=== PATIENT | female | born 1980 | race Caucasian/White ===

== ENCOUNTER 2017-04-29 14:28 | Outpatient (CLI) | payer MEDICARE, MEDICAID | END 2017-04-29 14:29 | disposition home or self-care (01) | LOC: BICRAD 14:28 | PROVIDERS: ATTEND Internal Medicine Gastroenterology | DX: K59.03 Drug induced constipation (principal) | CPT/HCPCS: 74018 ==

== ENCOUNTER 2018-01-31 12:53 | Outpatient (CLI) | payer MEDICARE, MEDICAID ==
--- NOTE | 2018-01-31 14:37 | CT ---
CT BRAIN WITHOUT CONTRAST: HISTORY: Subarachnoid hemorrhage, fall. FINDINGS: There are no previous exams for comparison. No evidence of infarct, hemorrhage, midline shift, or abnormal extraaxial fluid collections are seen. The ventricular size is normal and the basilar cisterns patent. The bony calvarium is intact. The visualized paranasal sinuses and mastoid air cells are well aerated. IMPRESSION: No CT evidence of acute intracranial process. This exam was interpreted in consultation with Dr. Reji Ford (neuroradiologist), [facility] POS: [facility]
== END 2018-01-31 12:54 | disposition home or self-care (01) ==
LOC: BICCT 12:53
PROVIDERS: ATTEND Specialist
DX: S06.6X0D Traumatic subarachnoid hemorrhage without loss of consciousness, subsequent encounter (principal)
CPT/HCPCS: 70450

== ENCOUNTER 2018-05-23 07:28 | Outpatient (CLI) | payer MEDICARE, MEDICAID ==
--- NOTE | 2018-05-23 09:13 | MRI ---
MRI BRAIN WITH AND WITHOUT CONTRAST: INDICATIONS: Complex partial seizures. Migraine headaches. COMPARISON: Reference made to 04/10/2016 brain MRI. FINDINGS: There is a normal size of the ventricular system. A few scattered small signal abnormalities of the cerebral white matter, involving the right cerebral hemisphere, are grossly stable. There is no new intracranial mass effect, midline shift, or acute territorial infarction. No pathologic intraaxial e nhancement. Skull base flow voids are maintained. There is mild mucosal prominence of the paranasal sinuses. IMPRESSION: 1. Stable examination without evidence of acute intracranial abnormality. 2. Previously described foci of signal alteration within the cerebral white matter are similar in ap pearance. POS: [facility]
[2018-05-23] MEDS ORDERED: Gadobenate Dimeglumine 529 MG/1 ML (20ML VIAL) ONE (13:43)
== END 2018-05-23 07:29 | disposition home or self-care (01) ==
LOC: MRI 07:28
PROVIDERS: ATTEND Psychiatry & Neurology Neurology
DX: G40.209 Localization-related (focal) (partial) symptomatic epilepsy and epileptic syndromes with complex partial seizures, not intractable, without status epilepticus (principal); G43.019 Migraine without aura, intractable, without status migrainosus
CPT/HCPCS: 70553; A9577

== ENCOUNTER 2018-06-05 10:25 | Outpatient (CLI) | payer MEDICARE, MEDICAID | END 2018-06-05 10:26 | disposition home or self-care (01) | LOC: PET 10:25 | PROVIDERS: ATTEND Psychiatry & Neurology Neurology | DX: G40.209 Localization-related (focal) (partial) symptomatic epilepsy and epileptic syndromes with complex partial seizures, not intractable, without status epilepticus (principal) | CPT/HCPCS: 78608; A9552 ==

== ENCOUNTER 2018-09-17 13:14 | Outpatient (CLI) | payer MEDICARE, MEDICAID ==
--- NOTE | 2018-09-17 15:46 | MRI ---
MRI OF THE CERVICAL SPINE WITHOUT CONTRAST: 09/17/18 HISTORY: G43.019, migraine without aura. Neck pain, headaches. Pain down both arms. COMPARISON: None. FINDINGS: Cerebellar tonsils terminate at the level of the foramen magnum. No marrow infiltrative process. Cord signal is normal. No paraspinal muscle atrophy. No significant cervical adenopathy. Levels are as follows: C2-3: Normal discs. No neural foraminal or spinal canal narrowing. Low grade uncinate process hypertr ophy. C3-4: Normal discs. No neural foraminal or spinal canal narrowing. C4-5: Normal discs. No neural foraminal or spinal canal narrowing. Low grade facet arthrosis. C5-6: Normal discs. No neural foraminal or spinal canal narrowing. Mild facet arthrosis bilaterally. C6-7: Normal discs. No neural foraminal or spinal canal narrowing. Moderate facet arthrosis bilateral ly. C7-T1: Normal discs. No neural foraminal or spinal canal narrowing. Moderate facet arthrosis. IMPRESSION: No significant neural foraminal or spinal canal narrowing throughout the entire cervical spine. POS: HOME
== END 2018-09-17 13:15 | disposition home or self-care (01) ==
LOC: BICMRI 13:14
PROVIDERS: ATTEND Specialist
DX: G43.019 Migraine without aura, intractable, without status migrainosus (principal); M54.2 Cervicalgia
CPT/HCPCS: 72141

== ENCOUNTER 2018-09-24 01:16 | Emergency (ER) | payer MEDICARE, MEDICAID ==
[2018-09-24] MEDS ORDERED: diphenhydrAMINE 50 MG/ML VIAL ONE (02:55)
[2018-09-24] MEDS ORDERED: Metoclopramide HCl 10 MG/2 ML VIAL ONE (02:55)
[2018-09-24] MEDS ORDERED: Magnesium 2 GM/50 ML BAG (IN WATER) ONE (04:01)
== END 2018-09-24 05:02 | disposition home or self-care (01) ==
LOC: ERS 01:16
DX: G43.909 Migraine, unspecified, not intractable, without status migrainosus (principal); K21.9 Gastro-esophageal reflux disease without esophagitis; F31.9 Bipolar disorder, unspecified; F90.9 Attention-deficit hyperactivity disorder, unspecified type; F17.210 Nicotine dependence, cigarettes, uncomplicated
CPT/HCPCS: 96365; 96367; 96375; J1200; J2765; J3475

== ENCOUNTER 2019-01-06 11:55 | Emergency (ER) | payer MEDICARE, MEDICAID ==
[2019-01-06 12:37] LABS: BHCG - Serum Negative (NEGATIVE); Pregs Control Background? CLEAR/WHITE (CLR/WHITE); Pregs Control Bar Appear? YES (CONTROL BAR)
[2019-01-06 12:44] LABS: ALT (SGPT) 15 U/L (8-55); AST (SGOT) 24 U/L (5-34); Albumin 3.8 g/dL (3.5-5.0); Alkaline Phosphatase 101 U/L (40-110); Anion Gap 11 mmol/L (10-20); BUN (Urea Nitrogen) 7 mg/dL (7.0-18.7); Bilirubin, Total 0.2 mg/dL (0.2-1.2); Calc. Creatinine Clearance 0 mL/min (70-130); Calcium 8.9 mg/dL (7.8-10.44); Carbon Dioxide 22 mmol/L (22-29); Chloride 108 mmol/L (98-107); Estimated GFR-MDRD Greater than 90; Globulin 3.1 g/dL (2.4-3.5); Glucose 117 mg/dL (70-105); Potassium 3.9 mmol/L (3.5-5.1); Protein, Total 6.9 g/dL (6.0-8.3); Sodium 137 mmol/L (136-145)
[2019-01-06] MEDS ORDERED: levETIRAcetam 500 MG/100 ML PREMIX BAG ONE (12:56)
== END 2019-01-06 13:50 | disposition home or self-care (01) ==
LOC: SCSER 11:55
DX: R56.9 Unspecified convulsions (principal); K21.9 Gastro-esophageal reflux disease without esophagitis; F41.9 Anxiety disorder, unspecified; F31.9 Bipolar disorder, unspecified; F90.9 Attention-deficit hyperactivity disorder, unspecified type; F17.210 Nicotine dependence, cigarettes, uncomplicated; Z79.899 Other long term (current) drug therapy
CPT/HCPCS: 80053; 84703; 96361; 96365; J1953

== ENCOUNTER 2019-01-14 13:31 | Outpatient (CLI) | payer MEDICARE, MEDICAID ==
[2019-01-14] MEDS ORDERED: Magnevist 469MG/ML 20 ML VIAL ONE ×2 (14:37→14:38)
--- NOTE | 2019-01-14 16:01 | MRI ---
Brain MRI with and without contrast: 01/14/2019 COMPARISON: 05/21/2018 HISTORY: Headaches, pressure behind both eyes, postconcussion syndrome, seizures TECHNIQUE: Multiplanar multisequence MR imaging of the brain obtained with and without contrast FINDINGS: The diffusion weighted imaging demonstrates no evidence for acute infarction and axial grad ient echo imaging demonstrates no evidence for intracranial hemorrhage. There are a few scattered subcentimeter foci of increased T2 and FLAIR signal within the deep and per iventricular white matter on the right, unchanged when compared to the prior examination. Arterial flow voids at the axial level of the skull base appear grossly unremarkable on the T2-weight ed imaging. The postcontrast imaging demonstrates no abnormal enhancement within the brain parenchyma. IMPRESSION: No acute findings.
--- NOTE | 2019-01-14 16:24 | MRI ---
MRI cervical spine with and without contrast: 01/14/2019 COMPARISON: 09/17/2018 HISTORY: Cervical spine pain, headaches TECHNIQUE: Multiplanar multisequence MR imaging of cervical spine with and without contrast FINDINGS: The sagittal STIR imaging demonstrates no focal area of osseous marrow edema. Cervical vert ebral body height and alignment is normal. No prevertebral soft tissue swelling. C2-3: No central canal or neural foraminal stenosis. C3-4: No central canal or neural foraminal stenosis. C4-5: No central canal or neural foraminal stenosis. C5-6: No central canal or neural foraminal stenosis. C6-7: No central canal or neural foraminal stenosis. C7-T1: No central canal or neural foraminal stenosis. No focal area of abnormal signal intensity identified within the cervical spine. Postcontrast imaging demonstrates no abnormal enhancement within the cervical spine. IMPRESSION: Unremarkable contrast enhanced cervical spine MRI.
== END 2019-01-14 13:32 | disposition home or self-care (01) ==
LOC: BICMRI 13:31
PROVIDERS: ATTEND Specialist
DX: M54.2 Cervicalgia (principal); F07.89 Other personality and behavioral disorders due to known physiological condition
CPT/HCPCS: 70553; 72156; A9579

== ENCOUNTER 2019-05-15 07:06 | Emergency (ER) | payer MEDICARE, OTHER ==
[2019-05-15 08:01] LABS: Anion Gap 13 mmol/L (10-20); BUN (Urea Nitrogen) 13 mg/dL (7.0-18.7); Calc. Creatinine Clearance 0 mL/min (70-130); Calcium 9.1 mg/dL (7.8-10.44); Carbon Dioxide 19 mmol/L (22-29); Chloride 111 mmol/L (98-107); Estimated GFR-MDRD Greater than 90; Glucose 94 mg/dL (70-105); Potassium 3.3 mmol/L (3.5-5.1); Sodium 140 mmol/L (136-145)
== END 2019-05-15 07:52 | disposition home or self-care (01) ==
LOC: ERS 07:06
DX: G40.909 Epilepsy, unspecified, not intractable, without status epilepticus (principal); K21.9 Gastro-esophageal reflux disease without esophagitis; F41.9 Anxiety disorder, unspecified; F31.9 Bipolar disorder, unspecified; F90.9 Attention-deficit hyperactivity disorder, unspecified type; Z87.891 Personal history of nicotine dependence; Z79.899 Other long term (current) drug therapy
CPT/HCPCS: 80048; 94760

== ENCOUNTER 2019-06-01 02:55 | Emergency (ER) | payer MEDICARE, MEDICAID ==
[2019-06-01] MEDS ORDERED: Ondansetron PF 4 MG/2 ML Vial ONE (03:29)
--- NOTE | 2019-06-01 08:22 | RAD ---
LUMBAR SPINE RADIOGRAPHS 3 VIEWS: DATE: 06/01/2019. PROVIDED CLINICAL HISTORY: Back pain. FINDINGS: Comparison 07/01/2007. Five [id number] lumbar-type vertebral bodies are present. Lumbar alignme nt appears normal. Vertebral body heights appear preserved. Intervertebral disk space heights appea r preserved. Pedicles appear intact. SI joints appear symmetric. IMPRESSION: No evidence for an acute osseous abnormality. POS: APRIL
== END 2019-06-01 04:28 | disposition home or self-care (01) ==
LOC: ERS 02:55
DX: S39.012A Strain of muscle, fascia and tendon of lower back, initial encounter (principal); S16.1XXA Strain of muscle, fascia and tendon at neck level, initial encounter; F90.9 Attention-deficit hyperactivity disorder, unspecified type; F31.9 Bipolar disorder, unspecified; K21.9 Gastro-esophageal reflux disease without esophagitis; Z79.899 Other long term (current) drug therapy; X58.XXXA Exposure to other specified factors, initial encounter
CPT/HCPCS: 72100; 96374; J2405

== ENCOUNTER 2019-06-19 10:03 | Outpatient (CLI) | payer MEDICARE, MEDICAID ==
--- NOTE | 2019-06-19 10:53 | CT ---
Exam: LUMBAR SPINE CT WITHOUT CONTRAST: HISTORY: Spondylosis, without myelopathy. Severe low back pain with radiation involving both lower ex tremities. Associated radiculopathy and weakness. COMPARISON: None. FINDINGS: Appropriate attenuation of the visualized solid organs and paraspinal muscles. Visualized aorta has a normal caliber. Visualized alimentary canal is grossly unremarkable. Presacral fat is preserved. Sacral ala are preserved. No sacral fracture. Symmetric sacroiliac joints. Five lumbar type vertebra. Lumbar spine vertebral body height is maintained. No fracture. There is no spondylolisthesis. No spondylolysis. Technique limits evaluation of the contents of the central spinal canal and neural foramina. L1-L2: No significant central canal stenosis or significant neural foraminal narrowing. L2-L3: No significant central canal stenosis or significant neural foraminal narrowing. L3-L4: No significant central canal stenosis or significant neural foraminal narrowing. L4-L5: Minimal broad-based disc bulge flattens the thecal sac. No significant central canal stenosis or significant neural foraminal narrowing. L5-S1: Broad-based disc bulge minimally contacts the thecal sac and encroaches upon the subarticular zones. No significant mass effect or obscuration of the thecal sac or either traversing S1 nerve root. Bilaterally, neural foramina are patent. IMPRESSION: 1. No fracture. 2. No significant central canal stenosis or significant neural foraminal narrowing throughout the lum bar spine. Transcribed Date/Time: 06/19/2019 11:03 AM
--- NOTE | 2019-06-19 10:58 | RAD ---
SACRUM AND COCCYX 3 VIEWS: Date: 06/19/2019 INDICATION: Spondylosis without myelopathy. Sacral pain. Pain to tailbone. FINDINGS: SI joints appear symmetric. Nonspecific degenerative sclerosis seen along both SI joints. Sacrum and coccyx otherwise appear unremarkable. No evidence of fracture. The lower lumbar vertebra, including L 4 and L5, show normal height and alignment and the disc spaces are preserved. Right hip prosthesis is noted. IMPRESSION: No acute findings. POS: [facility]
== END 2019-06-19 10:04 | disposition home or self-care (01) ==
LOC: BICCT 10:03
PROVIDERS: ATTEND Registered Nurse
DX: M47.816 Spondylosis without myelopathy or radiculopathy, lumbar region (principal)
CPT/HCPCS: 72131; 72220

== ENCOUNTER 2019-08-31 02:39 | Emergency (ER) | payer MEDICARE, OTHER ==
[2019-08-31] MEDS ORDERED: Metoclopramide HCl 10 MG TAB ONE (03:20)
[2019-08-31] MEDS ORDERED: HYDROcodone/Acetaminophen 10/325 mg Tablet ONE (03:20)
== END 2019-08-31 03:48 | disposition home or self-care (01) ==
LOC: ERS 02:39
DX: G89.29 Other chronic pain (principal); M25.552 Pain in left hip; F41.9 Anxiety disorder, unspecified; F31.9 Bipolar disorder, unspecified; F90.9 Attention-deficit hyperactivity disorder, unspecified type; Z79.899 Other long term (current) drug therapy
CPT/HCPCS: 99283

== ENCOUNTER 2019-09-01 11:54 | Emergency (ER) | payer MEDICARE, OTHER | END 2019-09-01 13:38 | disposition home or self-care (01) | LOC: ERS 11:54 | DX: G89.29 Other chronic pain (principal); M54.5 Low back pain; F41.9 Anxiety disorder, unspecified; F31.9 Bipolar disorder, unspecified; F90.9 Attention-deficit hyperactivity disorder, unspecified type; K21.9 Gastro-esophageal reflux disease without esophagitis; Z87.891 Personal history of nicotine dependence; Z79.899 Other long term (current) drug therapy | CPT/HCPCS: 99283 ==

== ENCOUNTER 2019-12-18 12:14 | Outpatient (CLI) | payer MEDICARE, OTHER, MEDICAID ==
--- NOTE | 2019-12-18 13:05 | RAD ---
SACROILIAC JOINTS: Date: 12/18/2019 HISTORY: SI joint pain. FINDINGS: There are mild arthritic-type changes of the SI joints. No ankylosis or erosive-type change. Right hi p prosthesis is present. IMPRESSION: No acute findings. POS: OFF
== END 2019-12-18 12:15 | disposition home or self-care (01) ==
LOC: BICRAD 12:14
DX: M25.50 Pain in unspecified joint (principal)
CPT/HCPCS: 36415; 72202; 80053; 85025; 85652; 86140

== ENCOUNTER 2020-02-29 12:54 | Outpatient (CLI) | payer MEDICARE, OTHER ==
--- NOTE | 2020-02-29 13:21 | RAD ---
Lumbar spine 2 views: 02/29/2020 COMPARISON: 06/01/2019 HISTORY: Low back pain FINDINGS: Lateral imaging of the lumbar spine demonstrates normal vertebral body height and alignment . Lumbar pedicles appear intact on frontal imaging. IMPRESSION: No acute findings.
--- NOTE | 2020-02-29 13:24 | RAD ---
Radiograph thoracic spine 3 views: 02/29/2020 HISTORY: 39-year-old female with mid back pain. History of falls. COMPARISON: Thoracic spine MRI of 12/21/2013 Plain radiograph of 09/12/2016. FINDINGS: Mild chronic superior endplate broad depression of T8 vertebral body, with minimal anterior wedging, and approximately 10-20 % overall loss of height, unchanged since the prior MRI. Moderate discogenic degenerative changes at T7-8. No loss of height involving any other levels. Mild discogenic degenerative changes at other levels in the mid and lower thoracic spine. No interval change overall since 09/12/2016. IMPRESSION: 1.) Low-grade thoracic spondylosis, consisting of moderate degenerative disc disease at T7-8, and mil d degenerative disc changes at a few other levels inferior to that. 2) old mild compression deformity of T8. 3) no acute compression fracture. No interval change since 09/12/2016.
== END 2020-02-29 12:55 | disposition home or self-care (01) ==
LOC: BICRAD 12:54
PROVIDERS: ATTEND Orthopaedic Surgery
DX: M54.5 Low back pain (principal); M54.6 Pain in thoracic spine; M51.34 Other intervertebral disc degeneration, thoracic region
CPT/HCPCS: 72072; 72100

== ENCOUNTER 2020-03-08 12:25 | Outpatient (CLI) | payer MEDICARE, MEDICAID ==
--- NOTE | 2020-03-08 13:56 | MRI ---
MRI THORACIC SPINE WITHOUT CONTRAST: 03/08/20 INDICATIONS: Thoracic spine. COMPARISON: Comparison made to MRI thoracic spine dated 12/21/13. FINDINGS: Mild anterior wedging of the T7 and T8 vertebrae again noted. There is a superior end plate deformity consistent with Schmorl node at T8. Findings at both of these levels are stable from 2013. There is no evidence of edema seen within any of the thoracic vertebrae on STIR sequence. Mild degenerative sp urring from the thoracic vertebrae. Mild superior end plate compression at T4 is also a stable finding without significant anterior wedgi ng. A small Schmorl node involving the superior end plate of T11 is stable. Review of the disc level shows a mild disc bulge at T7-T8 flattening the thecal sac, similar appearan ce to the prior study. Disc bulge at T9-T10 is seen with small protrusion paracentrally to the right at this level best appr eciated on the sagittal imaging. This may abut the anterior cord. No other significant disc bulge or protrusion. The thoracic cord signal appears normally preserved. IMPRESSION: 1. Mild wedging of T7 and T8 vertebrae with other vertebral end plate deformities as described a nadia which appears stable from 2013. 2. Mild disc bulge with possible small protrusion on the right at T9-T10 as described above. Min imal disc bulge at T7-T8 as described. POS: [facility]
== END 2020-03-08 12:26 | disposition home or self-care (01) ==
LOC: BICMRI 12:25
PROVIDERS: ATTEND Orthopaedic Surgery
DX: M54.6 Pain in thoracic spine (principal); M51.24 Other intervertebral disc displacement, thoracic region
CPT/HCPCS: 72146

== ENCOUNTER 2020-06-22 09:50 | Outpatient (CLI) | payer MEDICARE, MEDICAID ==
[2020-06-22] MEDS ORDERED: Magnevist 469MG/ML 20 ML VIAL ONE (12:36)
== END 2020-06-22 09:51 | disposition home or self-care (01) ==
LOC: BICMRI 09:50
PROVIDERS: ATTEND Psychiatry & Neurology Neurology
DX: H53.9 Unspecified visual disturbance (principal); R90.89 Other abnormal findings on diagnostic imaging of central nervous system
CPT/HCPCS: 70553; A9579

== ENCOUNTER 2020-06-24 05:48 | Emergency (ER) | payer MEDICARE, MEDICAID ==
[2020-06-24] MEDS ORDERED: Ondansetron ODT 4 MG TAB ONE (07:07)
[2020-06-24] MEDS ORDERED: HYDROcodone/Acetaminophen 7.5/325 mg Tablet ONE (07:07)
== END 2020-06-24 08:15 | disposition home or self-care (01) ==
LOC: ERS 05:48
DX: S50.11XA Contusion of right forearm, initial encounter (principal); Z87.891 Personal history of nicotine dependence; X58.XXXA Exposure to other specified factors, initial encounter
CPT/HCPCS: Q0162

== ENCOUNTER 2020-07-04 00:15 | Emergency (ER) | payer MEDICARE, MEDICAID | END 2020-07-04 03:02 | disposition left against medical advice (07) | LOC: ERS 00:15 | DX: Z53.21 Procedure and treatment not carried out due to patient leaving prior to being seen by health care provider (principal) ==

== ENCOUNTER 2021-10-26 13:14 | Emergency (ER) | payer OTHER ==
[2021-10-26] MEDS ORDERED: Morphine 4 MG/ML VIAL ONE (14:26)
== END 2021-10-26 14:57 | disposition home or self-care (01) ==
LOC: ERS 13:14
DX: M79.7 Fibromyalgia (principal); M54.32 Sciatica, left side
CPT/HCPCS: 96372; 99283; J2270

== ENCOUNTER 2021-11-15 11:05 | Outpatient (CLI) | payer OTHER | END 2021-11-15 11:06 | disposition home or self-care (01) | LOC: MRI 11:05 → BICMRI 11:06 | PROVIDERS: ATTEND Podiatrist | DX: S93.402A Sprain of unspecified ligament of left ankle, initial encounter (principal); M79.672 Pain in left foot; M65.872 Other synovitis and tenosynovitis, left ankle and foot ==

== ENCOUNTER 2022-12-21 10:52 | Emergency (ER) | payer OTHER ==
[2022-12-21 11:46] LABS: #Basophils 0.1 thou/uL (0.0-0.2); #Eosinphils 0.1 thou/uL (0.0-0.7); #Monocytes 0.7 thou/uL (0.11-0.59); #Neutrophils 6.3 thou/uL (1.40-6.50); %Basophils 0.7 % (0.0-1.0); %Monocytes 6.9 % (0.0-10.0); %Neutrophils 60.9 % (42.0-75.0); Hematocrit 42.6 % (36.0-47.0); Mean Corpuscular HGB CONC 32.9 g/dL (32.0-36.0); Mean Corpuscular Hemoglobin 30.8 pg (27.0-31.0); Mean Corpuscular Volume 93.8 fl (78.0-98.0); Mean Platelet Volume 9.4 fL (7.4-10.4); Platelet Count 351 10x3/uL (130-400); RBC Distribution Width 13.4 % (11.5-14.5); Red Blood Cell (RBC) Count 4.54 mill/uL (4.20-5.40); White Blood Cell (WBC) Count 10.4 10x3/uL (4.8-10.8)
[2022-12-21 12:01] LABS: BHCG - Serum Negative (NEGATIVE); Pregs Control Background? CLEAR/WHITE (CLR/WHITE); Pregs Control Bar Appear? YES (CONTROL BAR)
[2022-12-21] MEDS ORDERED: Dexamethasone 4 mg/ml Vial ONE (12:05)
[2022-12-21 12:09] LABS: ALT (SGPT) 32 U/L (8-55); AST (SGOT) 26 U/L (5-34); Albumin 4.4 g/dL (3.5-5.0); Alkaline Phosphatase 82 U/L (40-110); Anion Gap 12 mmol/L (10-20); BUN (Urea Nitrogen) 14 mg/dL (7.0-18.7); Bilirubin, Total 0.2 mg/dL (0.2-1.2); Calc. Creatinine Clearance 0 mL/min (70-130); Carbon Dioxide 20 mmol/L (22-29); Chloride 111 mmol/L (98-107); Estimated GFR 110; Globulin 2.8 g/dL (2.4-3.5); Glucose 99 mg/dL (70-105); Lipase 15 U/L (8-78); Protein, Total 7.2 g/dL (6.0-8.3); Sodium 139 mmol/L (136-145)
[2022-12-21] MEDS ORDERED: Morphine 4 MG/ML VIAL ONE (12:29)
== END 2022-12-21 12:49 | disposition home or self-care (01) ==
LOC: ERS 10:52
DX: R19.7 Diarrhea, unspecified (principal); M06.9 Rheumatoid arthritis, unspecified; E11.9 Type 2 diabetes mellitus without complications; M32.9 Systemic lupus erythematosus, unspecified; Z86.73 Personal history of transient ischemic attack (TIA), and cerebral infarction without residual deficits
CPT/HCPCS: 36415; 80053; 83690; 83735; 84703; 85025; 93005; 96361; 96374; 96375; J1100; J2270

== ENCOUNTER 2022-12-26 13:59 | Emergency (ER) | payer OTHER ==
[~2022-12-26 13:59] MED LIST: Iopamidol-370 76% 500 ML MDV (1 ML CHARGE) ONE
[2022-12-26] MEDS ORDERED: Dicyclomine 20 MG/2 ML VIAL ONE (14:55)
[2022-12-26 15:17] LABS: #Eosinphils 0.2 thou/uL (0.0-0.7); #Monocytes 0.6 thou/uL (0.11-0.59); #Neutrophils 5.5 thou/uL (1.40-6.50); %Basophils 0.4 % (0.0-1.0); %Eosinophils 1.5 % (0.0-10.0); %Lymphocytes 34.1 % (21.0-51.0); %Monocytes 6.4 % (0.0-10.0); %Neutrophils 57.2 % (42.0-75.0); Hematocrit 43.2 % (36.0-47.0); Hemoglobin 14.6 g/dL (12.0-16.0); Mean Corpuscular HGB CONC 33.8 g/dL (32.0-36.0); Mean Corpuscular Hemoglobin 31.1 pg (27.0-31.0); Mean Corpuscular Volume 91.9 fl (78.0-98.0); Mean Platelet Volume 9.3 fL (7.4-10.4); Platelet Count 377 10x3/uL (130-400); RBC Distribution Width 13.1 % (11.5-14.5); White Blood Cell (WBC) Count 9.7 10x3/uL (4.8-10.8)
[2022-12-26 15:41] LABS: BHCG - Serum Negative (NEGATIVE); Pregs Control Background? CLEAR/WHITE (CLR/WHITE); Pregs Control Bar Appear? YES (CONTROL BAR)
[2022-12-26 15:45] LABS: ALT (SGPT) 28 U/L (8-55); AST (SGOT) 20 U/L (5-34); Albumin 4.5 g/dL (3.5-5.0); Alkaline Phosphatase 95 U/L (40-110); Anion Gap 15 mmol/L (10-20); BUN (Urea Nitrogen) 14 mg/dL (7.0-18.7); Bilirubin, Total 0.2 mg/dL (0.2-1.2); Calc. Creatinine Clearance 0 mL/min (70-130); Calcium 9.1 mg/dL (7.8-10.44); Carbon Dioxide 19 mmol/L (22-29); Chloride 109 mmol/L (98-107); Estimated GFR 110; Globulin 2.9 g/dL (2.4-3.5); Glucose 92 mg/dL (70-105); Lipase 17 U/L (8-78); Magnesium 1.9 mg/dL (1.6-2.6); Potassium 3.6 mmol/L (3.5-5.1); Protein, Total 7.4 g/dL (6.0-8.3); Sodium 139 mmol/L (136-145)
[2022-12-26 16:04] LABS: SARS-CoV-2 NAA Rapid Test Not Detected (NotDetected)
[2022-12-26 16:20] LABS: Bilirubin Negative (Negative); Blood, Urine Negative (Negative); CAUTI Indications for Culture Fever or rigors; Clarity Clear (Clear); Glucose, Urine (Dipstick) Normal (Negative); Ketone, Urine Negative (Negative); Leukocyte Negative Leu/uL (Negative); Nitrite Negative (Negative); Protein, Urine (Dipstick) Negative (Neg-Trace); RBC/HPF 0-3 HPF (0-3); Specific Gravity, Urine 1.014 (1.002-1.036); Squamous Epithelial 0-3 HPF (0-3); Urobilinogen Normal mg/dL (Less than 2); WBC/HPF 0-3 HPF (0-3)
[2022-12-26 16:22] LABS: Bacteria/HPF 1+ HPF (None Seen)
[2022-12-26 16:23] LABS: Urine Culture Reflex No No
[2022-12-26] MEDS ORDERED: Ondansetron PF 4 MG/2 ML Vial ONE (16:48)
[2022-12-26 21:59] LABS: Campy jejuni + coli by PCR Negative (Negative); STEC Shiga Toxin 1+2 Negative (Negative); Salmonella spp. by PCR Negative (Negative); Shigella spp + EIEC by PCR Negative (Negative)
== END 2022-12-26 17:30 | disposition home or self-care (01) ==
LOC: ERS 13:59
DX: K62.5 Hemorrhage of anus and rectum (principal); K50.90 Crohn's disease, unspecified, without complications; K64.4 Residual hemorrhoidal skin tags; Z20.822 Contact with and (suspected) exposure to COVID-19
CPT/HCPCS: 0240U; 74177; 80053; 81001; 83690; 83735; 84703; 85025; 87505; 96361; 96372; 96374; J2405; Q9967

== ENCOUNTER 2023-04-04 12:14 | Emergency (ER) | payer OTHER ==
[2023-04-04] MEDS ORDERED: LORazepam 2 MG/ML SYR.(CARPUJECT) ONE (13:27)
== END 2023-04-04 13:47 | disposition home or self-care (01) ==
LOC: ERS 12:14
DX: F41.9 Anxiety disorder, unspecified (principal); F43.12 Post-traumatic stress disorder, chronic
CPT/HCPCS: 96372; 99284; J2060

== ENCOUNTER 2023-12-19 10:52 | Emergency (ER) | payer OTHER, MEDICAID ==
[2023-12-19 11:51] LABS: #Basophils 0.07 10x3/uL (0.0-0.2); %Basophils 0.8 % (0.0-1.0); %Eosinophils 0.8 % (0.0-10.0); %Lymphocytes 34.8 % (21.0-51.0); %Neutrophils 54.2 % (42.0-75.0); Hematocrit 42.4 % (36.0-47.0); Hemoglobin 13.9 g/dL (12.0-16.0); Mean Corpuscular HGB CONC 32.8 g/dL (32.0-36.0); Mean Corpuscular Hemoglobin 30.6 pg (27.0-31.0); Mean Corpuscular Volume 93.4 fL (78.0-98.0); Mean Platelet Volume 9.2 fL (7.4-10.4); Platelet Count 374 10x3/uL (130-400); RBC Distribution Width 13.3 % (11.5-14.5); Red Blood Cell (RBC) Count 4.54 mill/uL (4.20-5.40)
[2023-12-19 12:19] LABS: BHCG - Serum Negative (NEGATIVE); Pregs Control Background? CLEAR/WHITE (CLR/WHITE); Pregs Control Bar Appear? YES (CONTROL BAR)
[2023-12-19 12:25] LABS: ALT (SGPT) 27 U/L (8-55); AST (SGOT) 22 U/L (5-34); Alkaline Phosphatase 75 U/L (40-110); Anion Gap 11 mmol/L (10-20); BUN (Urea Nitrogen) 13 mg/dL (7.0-18.7); Bilirubin, Total 0.4 mg/dL (0.2-1.2); Calc. Creatinine Clearance 0 mL/min (70-130); Calcium 9.3 mg/dL (7.8-10.44); Carbon Dioxide 21 mmol/L (22-29); Chloride 110 mmol/L (98-107); Estimated GFR 109; Globulin 3.2 g/dL (2.4-3.5); Glucose 92 mg/dL (70-105); Potassium 3.3 mmol/L (3.5-5.1); Protein, Total 7.2 g/dL (6.0-8.3); Sodium 139 mmol/L (136-145)
[2023-12-19 13:00] LABS: Lipase 17 U/L (8-78)
== END 2023-12-19 12:54 | disposition home or self-care (01) ==
LOC: ERS 10:52
DX: S80.01XA Contusion of right knee, initial encounter (principal); S80.11XA Contusion of right lower leg, initial encounter; R19.7 Diarrhea, unspecified; W51.XXXA Accidental striking against or bumped into by another person, initial encounter
CPT/HCPCS: 36415; 80053; 83690; 84703; 85025; 99284

== ENCOUNTER 2024-03-14 09:55 | Emergency (ER) | payer OTHER, MEDICAID ==
[2024-03-14 10:40] LABS: ALT (SGPT) 25 U/L (8-55); AST (SGOT) 26 U/L (5-34); Albumin 4.2 g/dL (3.5-5.0); Alkaline Phosphatase 70 U/L (40-110); Anion Gap 17 mmol/L (10-20); BUN (Urea Nitrogen) 11 mg/dL (7.0-18.7); Bilirubin, Total 0.3 mg/dL (0.2-1.2); Calc. Creatinine Clearance 0 mL/min (70-130); Calcium 9.8 mg/dL (7.8-10.44); Carbon Dioxide 15 mmol/L (22-29); Chloride 109 mmol/L (98-107); Estimated GFR 112; Globulin 3.7 g/dL (2.4-3.5); Glucose 141 mg/dL (70-105); Magnesium 2.1 mg/dL (1.6-2.6); Potassium 3.8 mmol/L (3.5-5.1); Protein, Total 7.9 g/dL (6.0-8.3); Sodium 137 mmol/L (136-145)
[2024-03-14] MEDS ORDERED: Ondansetron PF 4 MG/2 ML Vial ONE (11:09)
[2024-03-14 12:35] LABS: #Basophils 0.04 10x3/uL (0.0-0.2); #Eosinophils Less than 0.03 10x3/uL (0.0-0.7); %Basophils 0.4 % (0.0-1.0); %Lymphocytes 14.9 % (21.0-51.0); %Monocytes 4.6 % (0.0-10.0); %Neutrophils 79.7 % (42.0-75.0); Hematocrit 43.2 % (36.0-47.0); Hemoglobin 14.6 g/dL (12.0-16.0); Mean Corpuscular HGB CONC 33.8 g/dL (32.0-36.0); Mean Corpuscular Hemoglobin 30.3 pg (27.0-31.0); Mean Corpuscular Volume 89.6 fL (78.0-98.0); Mean Platelet Volume 10.9 fL (7.4-10.4); Platelet Count 338 10x3/uL (130-400); Red Blood Cell (RBC) Count 4.82 mill/uL (4.20-5.40)
[2024-03-14 12:48] LABS: Troponin I Less than 0.010 ng/mL (< 0.028)
[2024-03-14 12:49] LABS: INR-International Normal Ratio 1.1; Prothrombin Time 14.2 sec (12.0-14.7)
[2024-03-14 12:50] LABS: PTT 30.8 sec (22.9-36.1)
[2024-03-14] MEDS ORDERED: Bacitracin 1 PK ONE (15:30)
[2024-03-14] MEDS ORDERED: Lidocaine 1% PF 5 ML VIAL ONE (15:30)
[2024-03-14] MEDS ORDERED: Boostrix 0.5 ML (Tdap) VIAL (>/=7 yrs of age) ONE (15:30)
== END 2024-03-14 16:17 | disposition home or self-care (01) ==
LOC: ERS 09:55
DX: S01.312A Laceration without foreign body of left ear, initial encounter (principal); G40.909 Epilepsy, unspecified, not intractable, without status epilepticus; X58.XXXA Exposure to other specified factors, initial encounter; Z86.73 Personal history of transient ischemic attack (TIA), and cerebral infarction without residual deficits
CPT/HCPCS: 70450; 73564; 80053; 83735; 84484; 85025; 85610; 85730; 90715; 93005; J2405; 12011; 90471; 96374

== ENCOUNTER 2024-04-11 08:44 | Emergency (ER) | payer OTHER, MEDICAID ==
[2024-04-11] MEDS ORDERED: levETIRAcetam 500 MG (5 mL) VIAL ONE (09:55)
[2024-04-11 10:07] LABS: #Basophils 0.05 10x3/uL (0.0-0.2); #Eosinophils Less than 0.03 10x3/uL (0.0-0.7); %Basophils 0.5 % (0.0-1.0); %Eosinophils 0.1 % (0.0-10.0); %Lymphocytes 21.8 % (21.0-51.0); %Monocytes 7.1 % (0.0-10.0); Hematocrit 41.5 % (36.0-47.0); Hemoglobin 13.8 g/dL (12.0-16.0); Mean Corpuscular HGB CONC 33.3 g/dL (32.0-36.0); Mean Corpuscular Hemoglobin 30.3 pg (27.0-31.0); Mean Corpuscular Volume 91.2 fL (78.0-98.0); Mean Platelet Volume 9.7 fL (7.4-10.4); Platelet Count 382 10x3/uL (130-400); RBC Distribution Width 13.3 % (11.5-14.5); Red Blood Cell (RBC) Count 4.55 mill/uL (4.20-5.40)
[2024-04-11 10:16] LABS: BHCG - Serum Negative (NEGATIVE); Pregs Control Background? CLEAR/WHITE (CLR/WHITE); Pregs Control Bar Appear? YES (CONTROL BAR)
[2024-04-11 10:23] LABS: ALT (SGPT) 21 U/L (Less than 34); AST (SGOT) 27 U/L (11-34); Albumin 4.2 g/dL (3.1-4.5); Alkaline Phosphatase 80 U/L (40-110); Anion Gap 14 mmol/L (10-20); BUN (Urea Nitrogen) 14 mg/dL (7.0-18.7); Bilirubin, Total 0.3 mg/dL (0.3-1.2); Calc. Creatinine Clearance 0 mL/min (70-130); Calcium 9.3 mg/dL (7.8-10.44); Carbon Dioxide 19 mmol/L (22-29); Chloride 112 mmol/L (98-107); Estimated GFR 116; Globulin 3.5 g/dL (2.4-3.5); Glucose 100 mg/dL (70-105); Potassium 4.1 mmol/L (3.5-5.1); Protein, Total 7.7 g/dL (6.0-8.3); Sodium 141 mmol/L (136-145)
[2024-04-11 10:27] LABS: Troponin I 0.016 ng/mL (< 0.028)
== END 2024-04-11 11:10 | disposition home or self-care (01) ==
LOC: ERS 08:44
DX: R56.9 Unspecified convulsions (principal); E78.5 Hyperlipidemia, unspecified; K21.9 Gastro-esophageal reflux disease without esophagitis; Z79.899 Other long term (current) drug therapy
CPT/HCPCS: 71045; 80053; 83605; 84146; 84484; 84703; 85025; 93005; J1953; 96365

== ENCOUNTER 2024-10-29 15:56 | Outpatient (CLI) | payer OTHER | END 2024-10-29 15:57 | disposition home or self-care (01) | LOC: BICRAD 15:56 | PROVIDERS: ATTEND Internal Medicine Rheumatology | DX: M25.552 Pain in left hip (principal); D50.0 Iron deficiency anemia secondary to blood loss (chronic); D52.0 Dietary folate deficiency anemia; D51.3 Other dietary vitamin B12 deficiency anemia; Z79.899 Other long term (current) drug therapy | CPT/HCPCS: 82306; 82607; 82728; 82746; 83540; 83550 ==